=== PATIENT | female | born 1990 | race Caucasian/White ===

== ENCOUNTER 2022-12-25 15:37 | Observation (INO) | payer BC ==
--- NOTE | 2022-12-25 15:58 | ED ---
Chest Pain HPI - General Chief Complaint: Chest Pain Stated Complaint: Chest Pain,Pneumonia Time Seen by Provider: 12/25/22 15:46 Source: patient, RN notes reviewed Mode of arrival: ambulatory Limitations: no limitations - History of Present Illness Initial Comments: This is a 32-year-old female who presents to the emergency department for chest pain, coughing, and shortness of breath. States that she has been treated at urgent care 3 times over the last 3 weeks. She's been treated with Augmentin, doxycycline, Tessalon Perles, an albuterol inhaler, and a Pulmicort inhaler. States that she feels like she may have had minor improvement, however it does not seem to have completely gone away. When symptoms first started, she was told it was bronchitis. A week later, she was told it was pneumonia. She was told by the urgent care, that if symptoms do not resolve, she should come to the emergency department for a CT scan of her chest. States that the symptoms have continued to persist and she is now developing centralized chest pain. He describes this as an aching and pressure sensation. Denies any history of asthma, other respiratory illnesses, or similar symptoms in the past. Denies any fevers, chills, sore throat, palpitations, abdominal pain, nausea, vomiting, diarrhea, back pain, or headaches. MD Complaint: chest pain Onset/Timin -: week(s) Pain Location: substernal - Related Data Home Medications Medication Instructions Recorded Confirmed Albuterol Inhaler [Ventolin Hfa 2 puff INHALATION RT-Q6H PRN 12/25/22 12/25/22 Inhaler] Amoxic-Pot Clav 875-125Mg 1 tab PO Q12HR 12/25/22 12/25/22 [Augmentin 875-125] Benzonatate [Tessalon Perles] 200 mg PO TID PRN 12/25/22 12/25/22 Budesonide [Pulmicort Flexhaler] 1 puff INHALATION RT-BID 12/25/22 12/25/22 Doxycycline Hyclate 100 mg PO BID 12/25/22 12/25/22 Allergies Allergy/AdvReac Type Severity Reaction Status Date / Time levothyroxine Allergy Rash/Hives Verified 12/25/22 17:28 Review of Systems ROS Statement: Those systems with pertinent positive or pertinent negative responses have been documented in the HPI. ROS Other: All systems not noted in ROS Statement are negative. Past Medical History Past Medical History: No Reported History History of Any Multi-Drug Resistant Organisms: None Reported Past Surgical History: No Surgical Hx Reported Past Psychological History: No Psychological Hx Reported Smoking Status: Never smoker Past Alcohol Use History: Occasional Past Drug Use History: None Reported General Exam Limitations: no limitations General appearance: alert, in no apparent distress Head exam: Present: atraumatic, normocephalic, normal inspection Respiratory exam: Present: normal lung sounds bilaterally. Absent: respiratory distress, wheezes, rales, rhonchi, stridor, chest wall tenderness Cardiovascular Exam: Present: regular rate, normal rhythm, normal heart sounds. Absent: systolic murmur, diastolic murmur, rubs, gallop, clicks Neurological exam: Present: alert, oriented X3, CN II-XII intact Psychiatric exam: Present: normal affect, normal mood Skin exam: Present: warm, dry, intact, normal color. Absent: rash Course Vital Signs 12/25/22 12/25/22 15:40 16:29 Temperature 98.2 F Pulse Rate 101 H Respiratory 20 18 Rate Blood Pressure 129/65 O2 Sat by Pulse 100 Oximetry Chest Pain MDM - MDM This is a 32-year-old female who presents to the emergency department for chest pain, coughing, and shortness of breath. Was pt. sent in by a medical professional or institution? @ -No Did you speak to anyone other than the patient for history? @ -No Did you review nursing and triage notes? @ -Yes, and I agree, it is accurate with regards to the patient's symptoms. Were old charts reviewed? @ -No Differential Diagnosis? @ -Differential Chest Pain: Stable Angina, Unstable Angina, STEMI, NSTEMI Aortic Dissection, Pneumothorax, Musculoskeletal, Esophageal Spasm GERD, Cholecystitis, Pancreatitis, Zoster, this is not meant to be an all-inclusive list. -Differential Dyspnea: Coronary syndrome, arrhythmia, tamponade, asthma, COPD, pulmonary embolism, pneumonia, pneumothorax, pulmonary effusion, anaphylaxis, diabetic ketoacidosis, flailed chest, pulmonary contusion, diaphragmatic rupture, anemia, neuromuscular, this is not meant to be an all-inclusive list. EKG interpreted by me (3pts min.)? @ -Sinus rhythm. Ventricular rate 79 beats per minute, MO interval 125 ms, QRS duration 84 ms, QTC 411 ms. X-rays interpreted by me (1pt min.)? @ -Chest x-ray obtained, my interpretation identifies no localized consolidations or infiltrates. CT interpreted by me (1pt min.)? @ -Computed tomography scan of the chest and abdomen obtained. My interpretation identifies nodular densities in the chest. I otherwise do not identify any bowel wall thickening or gallbladder wall thickening/distention of the gallbladder. What testing was considered but not performed? (CT, X-rays, U/S, labs)? Why? @ -None What meds were considered but not given? Why? @ -None Did you discuss the management of the patient with other professionals? @ -No Did you reconcile home meds? @ -No Was smoking cessation discussed for >3mins.? @ -No Was critical care preformed (if so, how long)? @ -No Were there social determinants of health that impacted care today? How? (Homelessness, low income, unemployed, alcoholism, drug addiction, transportation, low edu. Level, literacy, decrease access to med. care, [facility], rehab)? @ -No Was there de-escalation of care discussed even if they declined? (Discuss DNR or withdrawal of care, Hospice)? @ -No What co-morbidities impacted this encounter? (DM, HTN, Smoking, COPD, CAD, Cancer, CVA, Hep., AIDS, mental health diagnosis, sleep apnea, morbid obesity)? @ -None Was patient admitted / discharged? @ -Admitted. Chest x-ray reveals no acute findings. Patient negative for Covid, influenza, and RSV. Lab work reveals mild leukocytosis and a mild elevation in LFTs. Troponin and d-dimer negative. Lab work was otherwise nonactionable. Given that she also has a minor elevation in LFTs with the difficulty breathing and chest pain, will obtain a computed tomography scan of the chest and abdomen to evaluate for any irregularities with regards to the liver or gallbladder in addition to the chest. Computed tomography scan of the chest reveals multifocal areas of reticular nodular densities with an extensive list of differential diagnoses. Computed tomography scan of the abdomen otherwise reveals no irregularities, including with regards to the liver and gallbladder. Given these irregular computed tomography scan findings and the lack of patient's improvement on outpatient antibiotics, will admit to medicine with pulmonology consult for further evaluation. Patient started on Zosyn and azithromycin. Blood and sputum cultures obtained prior. Undiagnosed new problem with uncertain prognosis? @ -None Drug Therapy requiring intensive monitoring for toxicity (Heparin, Nitro, Insulin, Cardizem)? @ -None Were any procedures done? @ -None Diagnosis/symptom? @ -LINH, chest pain, nodular radiologic density Acute, or Chronic, or Acute on Chronic? @ -Acute Uncomplicated (without systemic symptoms) or Complicated (systemic symptoms)? @ -Complicated Side effects of treatment? @ -None Exacerbation, Progression, or Severe Exacerbation] @ -Not applicable Poses a threat to life or bodily function? @ -Yes This case was discussed in detail with the attending ED physician, Dr. Calvo. Presentation, findings, and treatment plan discussed in detail as well. Disposition Clinical Impression: Shortness of breath, Nodular radiologic density, Chest pain Disposition: ADMITTED IP TO THIS HOSP
[2022-12-25 16:13] LABS: Basophils % (A) 0 %; Eosinophils # (A) 0.1 k/uL (0-0.7); Eosinophils % (A) 1 %; HCT 39.3 % (34.0-46.0); HGB 13.6 gm/dL (11.4-16.0); Lymphocytes # (A) 2.2 k/uL (1.0-4.8); Lymphocytes % (A) 19 %; MCH 32.5 pg (25.0-35.0); MCHC 34.5 g/dL (31.0-37.0); MCV 94.1 fL (80.0-100.0); Mean Platelet Volume 7.9; Monocytes # (A) 0.4 k/uL (0-1.0); Monocytes % (A) 4 %; Neutrophils # (A) 8.8 k/uL (1.3-7.7); Neutrophils % (A) 75 %; Platelet Count 333 k/uL (150-450); RBC 4.18 m/uL (3.80-5.40); RDW 12.4 % (11.5-15.5); WBC 11.7 k/uL (3.8-10.6)
[2022-12-25 16:15] LABS: Appearance,Urine Clear (Clear); Bilirubin,Urine Negative (Negative); Blood,Urine Negative (Negative); Color,Urine Yellow; Glucose,Urine (UA) Negative (Negative); Ketones,Urine Negative (Negative); Leukocyte Esterase,Urine Negative (Negative); Nitrite,Urine Negative (Negative); PH, Urine 7.5 (5.0-8.0); Protein,Urine Negative (Negative); Specific Gravity,Urine 1.015 (1.001-1.035); Urobilinogen,Urine <2.0 mg/dL (<2.0)
[2022-12-25 16:27] LABS: ALT 97 U/L (4-34); AST 42 U/L (14-36); African American GFR (CKD) >90 (>60 ml/min/1.73 sqM); Albumin 4.6 g/dL (3.5-5.0); Alkaline Phosphatase 66 U/L (38-126); Anion Gap 10 mmol/L; Blood Urea Nitrogen 11 mg/dL (7-17); Calcium 9.3 mg/dL (8.4-10.2); Carbon Dioxide 24 mmol/L (22-30); Chloride 101 mmol/L (98-107); Glucose 102 mg/dL (74-99); Magnesium 1.6 mg/dL (1.6-2.3); Non-African American GFR(CKD) >90 (>60 ml/min/1.73 sqM); Sodium 135 mmol/L (137-145); Total Bilirubin 0.5 mg/dL (0.2-1.3); Total Protein 7.5 g/dL (6.3-8.2)
--- NOTE | 2022-12-25 16:29 | XR ---
EXAMINATION TYPE: XR chest 2V DATE OF EXAM: 12/25/2022 COMPARISON: NONE HISTORY: Chest pain TECHNIQUE: Frontal and lateral views of the chest are obtained. FINDINGS: FINDINGS: The lungs are clear of consolidative or abnormal interstitial opacity. There is no pleural effusion, pleural thickening or pneumothorax. The heart, pulmonary vasculature, mediastinum and hilum appear normal. The osseous structures soft tissues unremarkable. IMPRESSION: No acute cardiopulmonary process.
[2022-12-25 16:31] LABS: Partial Thromboplastin Time 23.2 sec (22.0-30.0); Prothrombin Time 10.5 sec (9.0-12.0)
--- NOTE | 2022-12-25 17:11 | CT ---
EXAMINATION TYPE: CT chest abdomen w con DATE OF EXAM: 12/25/2022 COMPARISON: None HISTORY: pneumonia, elevated LFTs CT DLP: 513 mGycm. Automated Exposure Control for Dose Reduction was Utilized. CONTRAST: CT scan of the thorax, abdomen is performed with IV Contrast, patient injected with 100 mL of Isovue 300. FINDINGS: CT chest: There are multifocal areas of reticular nodular densities or "tree in bud" opacities. This is a nonsp ecific finding with an extensive differential diagnosis are most commonly represents endobronchial ac arlin infection of either a bacterial, viral or fungal origin.. There is no dense airspace consolidation. There is no pleural effusion, pleural thickening or pneumothorax. The great vessels the chest are normal and there is no mediastinal, hilar or axillary adenopathy. The bony thorax is intact. CT abdomen: The gallbladder is normal without distention, wall thickening, gallstones or pericholecystic fluid. No focal mass or organomegaly of the solid visceral organs of the upper abdomen between the liver, pa ncreas, spleen or adrenal glands. The kidneys enhance symmetrically without solid renal mass or hydronephrosis. There is no retroperito mg adenopathy or hemorrhage in the caliber the abdominal aorta is normal. The bowel loops are normal in caliber and there is no evidence of dilatation or obstruction. No infla mmatory changes are identified within the mesentery and there is no free intraperitoneal air or fluid . The osseous structures of the abdomen are intact. IMPRESSION: 1. Abnormal CT chest with scattered areas of reticular nodular opacities or tree-in-bud appearance, s ee above. 2. No significant abnormality seen within the abdomen.
[2022-12-25] MEDS ORDERED: PNEUMONIA PROTOCOL UTILIZED 1 EACH MISC PO PRN (17:24)
[2022-12-25] MEDS ORDERED: PIPERACILLIN-TAZOBACTAM 3.375 GM in SODIUM CHLORIDE 0.9% 100 ML IVPB STA (17:24)
[2022-12-25] MEDS ORDERED: AZITHROMYCIN 500 MG in SODIUM CHLORIDE 0.9% 250 ML IVPB STA (17:24)
[2022-12-25] MEDS ORDERED: HYDROcodone/APAP 5-325MG 1 EACH TAB PO PRN (17:51)
[2022-12-25] MEDS ORDERED: KETOROLAC 15 MG/ML 1 ML VIAL IVP PRN (17:51)
[2022-12-25] MEDS ORDERED: IBUPROFEN 400 MG TAB PO PRN (17:51)
[2022-12-25] MEDS ORDERED: NALOXONE 0.4 MG/ML 1 ML VIAL IV PRN (17:51)
[2022-12-25] MEDS ORDERED: ACETAMINOPHEN TAB 325 MG TAB PO PRN (17:51)
[2022-12-25] MEDS ORDERED: ONDANSETRON 4 MG/2 ML VIAL IVP PRN (17:51)
--- NOTE | 2022-12-25 23:15 | P.CNPUL ---
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 This is a pleasant 32-year-old female with no significant medical history. She has never smoked. Patient presents with chief concern of a nonproductive cough, chest congestion, intermittent nonradiating chest pain. Patient has been to the urgent care 3 times over the last 3 weeks. She has been treated for bronchitis and pneumonia with Augmentin, doxycycline, Tessalon Perles, albuterol inhaler, and Pulmicort inhaler. She has also received a prednisone burst taper. She's had minor improvement over the last couple weeks, but the symptoms have persisted. Patient ultimately presented to the ER today. Chest x-ray on arrival showed no acute cardiopulmonary process. A follow-up chest CT showed no focal consolidation, but there were some reticulonodular infiltrates bilaterally. Patient is currently sitting up in bed, on room air, in no acute distress. She denies any fever, hemoptysis. CBC on arrival shows mild leukocytosis with WBC count 11.7, hemoglobin 13.6, hematocrit 39.3, platelets 330,000. D-dimer was nonelevated. CMP was unremarkable. LFTs were very mildly elevated. Troponins were negative 1. ECG showed no ischemic changes. CRP level was low at 0.5. No procalcitonin checked. Negative for influenza, RSV, COVID-19. Vital signs are stable. Review of Systems REVIEW OF SYSTEMS: CONSTITUTIONAL: Denies any recent significant weight loss or weight gain. EYES: Denies change in vision. EARS, NOSE, MOUTH, THROAT: Denies headaches, denies sore throat. CARDIOVASCULAR: Denies radiating chest pain, palpitations or syncopal episodes. RESPIRATORY: See HPI GASTROINTESTINAL: Denies change in appetite, abdominal pain, nausea and vomiting, or diarrhea GENITOURINARY: Denies hematuria, denies infections. MUSKULOSKELETAL: Denies pain, denies swelling. INTEGUMENTARY: Denies rash, denies eczema. NEUROLOGICAL: Denies recent memory loss, no recent seizure activity. PSYCHIATRIC: Denies anxiety, denies depression. HEMATOLOGIC/LYMPHATIC: Denies anemia, denies enlarged lymph node Past Medical History Past Medical History: No Reported History History of Any Multi-Drug Resistant Organisms: None Reported Past Surgical History: No Surgical Hx Reported Past Anesthesia/Blood Transfusion Reactions: No Reported Reaction Past Psychological History: No Psychological Hx Reported Smoking Status: Never smoker Past Alcohol Use History: Occasional Past Drug Use History: None Reported Medications and Allergies Home Medications Medication Instructions Recorded Confirmed Type Albuterol Inhaler [Ventolin Hfa 2 puff INHALATION RT-Q6H PRN 12/25/22 12/25/22 History Inhaler] Amoxic-Pot Clav 875-125Mg 1 tab PO Q12HR 12/25/22 12/25/22 History [Augmentin 875-125] Benzonatate [Tessalon Perles] 200 mg PO TID PRN 12/25/22 12/25/22 History Budesonide [Pulmicort Flexhaler] 1 puff INHALATION RT-BID 12/25/22 12/25/22 History Doxycycline Hyclate 100 mg PO BID 12/25/22 12/25/22 History Allergies Allergy/AdvReac Type Severity Reaction Status Date / Time levothyroxine Allergy Rash/Hives Verified 12/25/22 17:28 Physical Exam Vitals: Vital Signs Temp Pulse Resp BP Pulse Ox 12/25/22 16:29 18 12/25/22 15:40 98.2 F 101 H 20 129/65 100 Intake and Output 12/25/22 12/25/22 12/25/22 06:59 14:59 22:59 Other: Weight 57.606 kg GENERAL EXAM: Alert, 32-year-old female, comfortable in no apparent distress. HEAD: Normocephalic and atraumatic EYES: Normal reaction of pupils, equal size. NOSE: Clear with pink turbinates. THROAT: No erythema or exudates. NECK: No masses, no JVD. CHEST: No chest wall deformity. LUNGS: Equal air entry with no crackles, wheeze, rhonchi or dullness. On room air. There is a persistent nonproductive cough. No conversational dyspnea or accessory muscle use.. CVS: S1 and S2 normal with no audible murmur, regular rhythm. No extra heart sounds ABDOMEN: No hepatosplenomegaly, active bowel sounds, no guarding or rigidity. SPINE: No scoliosis or deformity SKIN: No rashes CENTRAL NERVOUS SYSTEM: No focal deficits, tone is normal in all 4 extremities. EXTREMITIES: There is no peripheral edema, clubbing, or cyanosis. Peripheral pulses are intact. Results - Laboratory Findings CBC and BMP: 12/25/22 15:56 12/25/22 15:56 PT/INR, D-dimer PT 10.5 sec (9.0-12.0) 12/25/22 15:56 INR 1.0 (<1.2) 12/25/22 15:56 D-Dimer 0.29 mg/L FEU (<0.60) 12/25/22 15:56 Abnormal lab findings: Abnormal Labs 12/25/22 12/25/22 15:56 15:56 WBC 11.7 H Neutrophils # 8.8 H Sodium 135 L Glucose 102 H AST 42 H ALT 97 H - Diagnostic Findings Chest x-ray: image reviewed CT scan - chest: image reviewed Assessment and Plan Assessment: Acute bronchitis Chest pain, ischemia has been ruled out Mildly elevated LFTs Plan: Patient's medications, labs, chest x-ray, chest CT were reviewed On room air Start patient on prednisone burst taper Start Robitussin-DM Check pro calcitonin level De-escalate antibiotics accordingly We will continue to follow, anticipate discharge in the next 24-48 hours I have personally seen and examined the patient, performed the documentation and the assessment and plan as written. Number of minutes spent on the visit:20 Time with Patient: Greater than 30
[2022-12-25] MEDS ORDERED: guaiFENesin-DM 100-10MG/5ML 10 ML CUP PO PRN (23:30)
[2022-12-25] MEDS: predniSONE 20 MG TAB PO SCH (23:44)
[2022-12-26] MEDS ORDERED: PIPERACILLIN-TAZOBACTAM 3.375 GM in SODIUM CHLORIDE 0.9% 100 ML IVPB SCH ×2
[2022-12-26 07:37] VITALS: BP 112/72; PULSE 67; RESP 16; TEMP 97.8
[2022-12-26] MEDS ORDERED: AZITHROMYCIN 500 MG TAB PO SCH (09:00)
[2022-12-26] MEDS: predniSONE 20 MG TAB PO SCH (09:03)
--- NOTE | 2022-12-26 12:39 | P.PN ---
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 This is a pleasant 32-year-old female with no significant medical history. She has never smoked. Patient presents with chief concern of a nonproductive cough, chest congestion, intermittent nonradiating chest pain. Patient has been to the urgent care 3 times over the last 3 weeks. She has been treated for bronchitis and pneumonia with Augmentin, doxycycline, Tessalon Perles, albuterol inhaler, and Pulmicort inhaler. She has also received a prednisone burst taper. She's had minor improvement over the last couple weeks, but the symptoms have persisted. Patient ultimately presented to the ER today. Chest x-ray on arrival showed no acute cardiopulmonary process. A follow-up chest CT showed no focal consolidation, but there were some reticulonodular infiltrates bilaterally. Patient is currently sitting up in bed, on room air, in no acute distress. She denies any fever, hemoptysis. CBC on arrival shows mild leukocytosis with WBC count 11.7, hemoglobin 13.6, hematocrit 39.3, platelets 330,000. D-dimer was nonelevated. CMP was unremarkable. LFTs were very mildly elevated. Troponins were negative 1. ECG showed no ischemic changes. CRP level was low at 0.5. No procalcitonin checked. Negative for influenza, RSV, COVID-19. Vital signs are stable. The patient is seen today 12/26/2022 in follow-up on the regular medical floor. She is currently sitting up in bed. Awake and alert in no acute distress. Denies any worsening shortness of breath, cough or congestion. Less coughing. Feeling better today compared to yesterday. Maintaining O2 saturations up to 100% on room air. She's been afebrile. Hemodynamically stable. She's been treated with azithromycin and Zosyn. Prednisone taper. Objective - Vital Signs Vital signs: Vital Signs Temp 97.8 F 12/26/22 06:59 Pulse 67 12/26/22 06:59 Resp 16 12/26/22 06:59 BP 112/72 12/26/22 06:59 Pulse Ox 100 12/26/22 09:03 FiO2 Intake & Output 12/25/22 12/26/22 12/26/22 18:59 06:59 18:59 Intake Total 640 Balance 640 Weight 57.606 kg Intake: Intake, IV Titration 100 Amount Piperacillin-Tazobactam 3 100 .375 gm In Sodium Chloride 0.9% 100 ml @ 200 mls/hr IVPB ONCE STA Rx#:[id number] Oral 540 Other: Voiding Method Toilet # Voids 1 - Exam GENERAL EXAM: Alert, active, very pleasant 32-year-old female, on room air, comfortable in no apparent distress. HEAD: Normocephalic. EYES: Normal reaction of pupils, equal size. NOSE: Clear with pink turbinates. THROAT: No erythema or exudates. NECK: No masses, no JVD. CHEST: No chest wall deformity. LUNGS: Equal air entry with no crackles, wheeze, rhonchi or dullness. CVS: S1 and S2 normal with no audible murmur, regular rhythm. ABDOMEN: No hepatosplenomegaly, normal bowel sounds, no guarding or rigidity. SPINE: No scoliosis or deformity SKIN: No rashes CENTRAL NERVOUS SYSTEM: No focal deficits, tone is normal in all 4 extremities. EXTREMITIES: There is no peripheral edema. No clubbing, no cyanosis. Peripheral pulses are intact. - Labs CBC & Chem 7: 12/25/22 15:56 12/25/22 15:56 Labs: Abnormal Lab Results - Last 24 Hours (Table) 12/25/22 12/25/22 Range/Units 15:56 15:56 WBC 11.7 H (3.8-10.6) k/uL Neutrophils # 8.8 H (1.3-7.7) k/uL Sodium 135 L (137-145) mmol/L Glucose 102 H (74-99) mg/dL AST 42 H (14-36) U/L ALT 97 H (4-34) U/L Assessment and Plan Assessment: Acute bronchitis, failed outpatient treatment Chest pain, ischemia has been ruled out Mildly elevated LFTs Plan: The patient was seen and evaluated Medications reviewed Stable and on room air Cleared for discharge from the pulmonary standpoint Completed prednisone taper Complete course of antibiotics Follow-up in our office in 1 week for follow-up chest x-ray I have personally seen and examined the patient, performed the documentation and the assessment and plan as written. Number of minutes spent on the visit: 10.
--- NOTE | 2022-12-26 13:53 | HP ---
HISTORY AND PHYSICAL Combined history and physical and discharge summary. CHIEF COMPLAINT: Chest pain and cough. HISTORY OF PRESENT ILLNESS: This 32-year-old woman with a past medical history of no significant medical issues, was admitted with increasing cough and chest pains. The patient has visited multiple urgent care visits. The patient was evaluated by Dr. Paz also. The patient also has history of bronchitis. LFTs are mildly elevated. The CT chest showed some reticular lower lobe opacities and the patient was admitted for further evaluation and treatment. There is no history of any fever, rigors, or chills. PAST MEDICAL HISTORY: No significant prior medical issues. HOME MEDICATIONS: Reviewed include Pulmicort, dose and rest of the medications noted. ALLERGIES: Levothyroxine. FAMILY HISTORY: No history of heart disease or strokes in the family. SOCIAL HISTORY: No history of smoking. Occasional alcohol. REVIEW OF SYSTEMS: A 14-point review is negative except as mentioned. PHYSICAL EXAMINATION: VITAL SIGNS: Pulse is 67, blood pressure 112/72, respirations 16. HEENT: Eyes normal. NECK: No jugular venous distention. CARDIOVASCULAR: S1, S2 muffled. RESPIRATIONS: Clear to auscultation. Few scattered rhonchi. ABDOMEN: Soft, nontender. NERVOUS SYSTEM: No focal deficits. SKIN: No ulcer, rash, bleeding. JOINTS: No active deforming arthropathy. LABORATORY DATA: Reviewed. WBC 11.7. ASSESSMENT: 1. Acute purulent tracheobronchitis with failure of outpatient treatment. 2. Reticulonodular opacities in the CAT scan of undetermined significance. 3. Elevated LFTs, mildly. RECOMMENDATIONS: This 32-year-old woman was admitted with multiple medical issues. I would recommend symptomatic treatment. Pulmonary has seen the patient. Recommend bronchodilators, steroids, and antibiotics on discharge. Continued followup. Overall prognosis is guarded. As mentioned earlier, viral titers negative but still viral etiology cannot be completely ruled out. The patient is stable, keen on going home, so the patient will be discharged in a stable condition. Guarded prognosis. Please refer to the medication reconciliation sheet for list of medications. MMODL / IJN: [id number] /
[2022-12-26] MEDS ORDERED: AZITHROMYCIN 500 MG in SODIUM CHLORIDE 0.9% 250 ML IVPB SCH (16:00)
== END 2022-12-26 11:59 | disposition home or self-care (01) ==
LOC: EC 15:37 → 5NMEDONC 17:59 → INTOOBSV 17:59 → 5NMEDONC 19:28 → UNDODISIN 12-26 11:59
PROVIDERS: ADMIT Internal Medicine; ATTEND Internal Medicine
DX: J20.9 Acute bronchitis, unspecified (principal); R07.89 Other chest pain; R79.89 Other specified abnormal findings of blood chemistry; Z79.899 Other long term (current) drug therapy; Z20.822 Contact with and (suspected) exposure to COVID-19; Z88.8 Allergy status to other drugs, medicaments and biological substances; Z32.02 Encounter for pregnancy test, result negative
CPT/HCPCS: 96366 ×3; 96365 ×2; 99285; 36415; 94760; 93005; 85379; 80053; 87449; 83735; 84484; 85025; 85610; 85730; 86140; 81003; 81025; 87040; 84145; 87636; 71046; 71260; 74160; G0378 ×2; J2543; J0456; J7512 ×2; Q9967; 96368